=== PATIENT | female | born 1950 | race Caucasian/White ===

== ENCOUNTER 2016-07-26 08:29 | Day surgery (SDC) | payer OTHER ==
[2016-07-21 10:13] VITALS: BMI 47.0
--- NOTE | 2016-07-21 10:54 | PAT Medication Instructions ---
Service Date Jul 21, 2016. Current Home Medication List Acetaminophen (Tylenol), 1,000 MG PO PRN Ybqnd-G-Hsrnskvqsjcjw (Beano), 2 TAB PO QAM Aspirin (Aspirin Ec), 81 MG PO QAM Atorvastatin (Lipitor), 10 MG PO QAM Cholecalciferol (Vitamin D3), 15,000 TAB PO QAM Citalopram (Citalopram Hydrobromide), 1 TAB PO QAM Diphenhydramine Hcl (Benadryl Allergy), 1 CAP PO QAM Furosemide (Lasix), 40 MG PO QAM Insulin Glargine (Lantus), 30 UNITS SC QAM Insulin Lispro (Human) (Humalog), SC SLIDING SCALE Levothyroxine Sodium (Levothyroxine Sodium), 1 TAB PO QAM Lisinopril (Zestril), 10 MG PO QAM Lorazepam (Ativan), 0.5 MG PO TID Multivitamin (Multivitamin), 1 TAB PO QAM Ranitidine (Zantac), 150 MG PO QAM Sennosides-Docusate Sodium (Stool Softener), 3 TAB PO QAM Medication Instructions For Your Scheduled Surgery Aspirin (Aspirin Ec), 81 MG PO QAM (stop 5-7 days prior to surgery per surgeon instructions) - Hold the following medications the morning of surgery: Sennosides-Docusate Sodium (Stool Softener), 3 TAB PO QAM Multivitamin (Multivitamin), 1 TAB PO QAM Lisinopril (Zestril), 10 MG PO QAM Insulin Lispro (Human) (Humalog), SC SLIDING SCALE Diphenhydramine Hcl (Benadryl Allergy), 1 CAP PO QAM Furosemide (Lasix), 40 MG PO QAM Cholecalciferol (Vitamin D3), 15,000 TAB PO QAM Gnafd-B-Vpaswxaxpuynr (Beano), 2 TAB PO QAM - Take the following medications the morning of surgery with a sip of water: Ranitidine (Zantac), 150 MG PO QAM Lorazepam (Ativan), 0.5 MG PO TID Levothyroxine Sodium (Levothyroxine Sodium), 1 TAB PO QAM Citalopram (Citalopram Hydrobromide), 1 TAB PO QAM Atorvastatin (Lipitor), 10 MG PO QAM Acetaminophen (Tylenol), 1,000 MG PO PRN (if needed) - Take the following medications as scheduled the night before surgery: Lorazepam (Ativan), 0.5 MG PO TID Insulin Lispro (Human) (Humalog), SC SLIDING SCALE Acetaminophen (Tylenol), 1,000 MG PO PRN - For Insulin Dependent Diabetic patients: Test blood sugar A.M. of surgery. - If blood sugar is greater than 150, take half of your Lantus dose (15 units) - If blood sugar is less than 150, do not take any: Lantus morning of surgery If you have any questions please call us at [phone] or [phone] ( Celia) or [phone]
--- NOTE | 2016-07-21 11:32 | DIAGNOSTIC IMAGING REPORT ---
CHEST PREADMISSION(PA/LAT) CLINICAL HISTORY: PAT preoperative evaluation COMPARISON STUDY: 02/10/2016 FINDINGS: Mild stable cardiomegaly. Lungs are clear. Diaphragms smooth. Costophrenic angles are sharp. IMPRESSION: Mild stable cardiomegaly. Otherwise negative study Electronically signed by: Markel Mojica M.D. 07/21/2016 11:30 AM Dictated Date/Time: 07/21/2016 11:29 AM
[2016-07-21 11:41] LABS: PROTHROMBIN TIME (PATIENT) 10.2 SECONDS (9.0-12.0)
--- NOTE | 2016-07-25 16:14 | HISTORY & PHYSICAL EXAMINATION ---
DATE OF ADMISSION: 07/26/2016 HISTORY OF PRESENT ILLNESS: The patient presents as a very pleasant 65-year-old white female, 5 feet 1 inch, 248 pounds with complaints of ongoing right shoulder pain. She has had a recurrent tear of a previously repaired rotator cuff. She had postoperatively had an injury, whereby she had increased complaints of pain. She has failed attempts at conservative management including anti-inflammatories, relative rest, activity modification as well as injection and presents for revision repair of rotator cuff. PAST MEDICAL HISTORY: Significant for congestive heart failure, hypertension, hypercholesterolemia, asthma, emphysema, sleep apnea, home CPAP, anxiety, acid reflux, hiatal hernia, osteoarthritis, neck DJD, low back DJD, and obesity. Otherwise unremarkable. See history of present illness for pertinent positives. FAMILY HISTORY: Otherwise unremarkable and noncontributory. SOCIAL HISTORY: The patient denies history of alcohol, smoking or recreational drug use. PAST SURGICAL HISTORY: Significant for hysterectomy, total knee arthroplasty x2, bilateral carpal tunnel release, left shoulder surgery x2, right shoulder surgery x2, and cholecystectomy. ALLERGIES: None. MEDICATIONS: Include Lasix 40 mg p.o. q. daily, atorvastatin 10 mg p.o. at bedtime, ranitidine 150 mg p.o. q. daily, lorazepam 0.5 mg p.o. t.i.d., lisinopril 10 mg p.o. q. daily, Levoxyl 100 mcg daily, and aspirin 325 mg p.o. q. daily. PHYSICAL EXAMINATION: GENERAL: Reveals a very pleasant 65-year-old white female, alert and oriented x3. HEENT: Atraumatic, normocephalic. HEART: Irregular at 70 beats per minute. No murmurs are noted. LUNGS: Clear. No rales, rhonchi, or wheezes noted. ABDOMEN: Soft, nontender, nondistended. Bowel sounds are present in all 4 quadrants. RECTAL: No rectal examination was performed. MUSCULOSKELETAL: Consistent with that of a retear of a previously repaired rotator cuff after sustaining a fall and reinjuring her shoulder. She has failed attempts at conservative management including postoperative therapy, sling, pain management, injection and presents today for revision rotator cuff repair of the right shoulder which was previously repaired on 04/06/2016. PLAN: For postoperative pain management, DVT prophylaxis, antibiotics as noted above.
[~2016-07-26] VITALS: Ht 154.9 cm; Wt 113.7 kg
--- NOTE | 2016-07-26 08:27 | History & Physical Bridge Note ---
H&P Re-Evaluation Bridge Note: I have examined the patient, reviewed the History & Physical and in the interval since the performance of the History & Physical I have noted the following changes of clinical significance: No changes noted
[~2016-07-26 08:29] MED LIST: ACET-1256 PO; ALPHTAB4 PO; ASPI81TA28 PO; ATOR10TA82 PO; CEFAZOLIN 2000 MG/60 ML D5W IV SCH; CHOL1000 PO; CITA40TA4 PO; DIPH25CA65 PO; FRS/40 PO; INSDGI SC; INSU100I SC; LACTATED RINGER'S 1000ML 1,000 ML IV SCH; LEVO100T7 PO; LISI-461 PO; LORA-741 PO; MULT-506 PO; ROPIVACAINE 0.5% 5 MG/ML 30 ML VIAL ONE; SENNTAB23 PO; ZNTT/150 PO
[2016-07-26] MEDS ORDERED: MIDAZOLAM HCL 1 MG/ML 2ML VIAL ONE (08:49)
[2016-07-26] MEDS ORDERED: FENTANYL CITRATE INJ 50 MCG/1 ML 2 ML VIAL ONE (08:50)
[2016-07-26 09:15] VITALS: BP 145/67; PULSE 60; TEMP 36.9; O2SAT 97; Ht 154.9 cm; Wt 113.7 kg
[2016-07-26] MEDS ORDERED: GLYCOPYRROLATE INJ 0.2 MG/ML VIAL ONE (09:35)
[2016-07-26] MEDS ORDERED: ROCURONIUM BROMIDE 10 MG/ML 5 ML VIAL ONE (09:35)
[2016-07-26] MEDS ORDERED: PHENYLEPHRINE 100MCG/ML 5ML SYR ONE (09:35)
[2016-07-26] MEDS ORDERED: EpHEDrine SULFATE 50MG/5ML SYR ONE (09:35)
[2016-07-26] MEDS ORDERED: DEXAMETHASONE SOD INJ 4 MG/ML VIAL ONE (09:35)
[2016-07-26] MEDS ORDERED: LIDOCAINE HCL 2% 2 ML VIAL (20MG/ML) ONE (09:35)
[2016-07-26] MEDS ORDERED: ONDANSETRON INJ 2 MG/ML 2 ML VIAL ONE (09:35)
[2016-07-26] MEDS ORDERED: PROPOFOL IV EMULSION 10 MG/ML 20 ML VIAL IV ONE (09:35)
[2016-07-26] MEDS ORDERED: NEOSTIGMINE METHYLSULFATE 5 MG/5 ML SYR ONE (09:35)
[2016-07-26] MEDS ORDERED: LARYING-O-JET KIT (LTA) EXT ONE ×2 (11:33)
--- NOTE | 2016-07-26 11:51 | [facility] Post Operative Brief Note ---
Immediate Operative Summary Operative Date Jul 26, 2016. Pre-Operative Diagnosis Rotator cuff tear, right shoulder Post-Operative Diagnosis same as preoperative Procedure(s) Performed revision repair rotator cuff Surgeon Dr. Iraheta Roading Engineer Surgeon(s) Stefan Lowe PA-C Estimated Blood Loss 3 ML Findings 2 cm tear rotator cuff Specimens none Complication(s) None Disposition Recovery Room / PACU
--- NOTE | 2016-07-26 12:11 | OPERATIVE REPORT ---
DATE OF OPERATION: 07/26/2016 PREOPERATIVE DIAGNOSIS: Re-tear rotator cuff, right shoulder. POSTOPERATIVE DIAGNOSIS: Same. PROCEDURE: Revision repair of rotator cuff, right shoulder. SURGEON: Dr. Iraheta. COMPRESSOR TECHNICIAN: ANNIE Harris, who was necessary for prepping, draping, retraction, suture management, wound closure, and was necessary for the case. HISTORY: The patient presents as a very pleasant 65-year-old white female, being seen and evaluated as she had previously undergone a rotator cuff repair, presents after having sustained an injury and re-tear. She has approximately a 2 cm tear adjacent, just posterior to the region of the previous repair. On previous repair, anchors were intact and were well fixed to bone. There was a 2 cm tear involving the most posterior aspect of the supraspinatus and the anterior superior aspect of the infraspinatus. PROCEDURE IN DETAIL: After proper prepping and draping of the right shoulder region, standard arthroscopic portals revealed the above tear to be noted. The labrum was visualized and evaluated and noted to be intact. Articular cartilage of the glenoid and humerus was noted to be intact. Rotator cuff tear was approximately 2 cm across with no retraction noted. Subsequently, a 4.5 mm double-loaded anchor was placed into the greater tuberosity. The rotator cuff was repaired back to a bed of bleeding bone. There was no further acromioplasty necessary. Subsequently, all particulate matter and debris were removed. Skin portals were closed with 4-0 nylon. Sterile compressive dressing was placed. The patient was taken to recovery room in stable condition. ESTIMATED BLOOD LOSS: 3 mL COMPLICATIONS: None. I attest to the content of the Intraoperative Record and any orders documented therein. Any exceptio ns are noted below.
[2016-07-26] MEDS ORDERED: OXYC-57 PO (12:14)
[2016-07-26] MEDS ORDERED: MoRPHine SULFATE 2 MG/ML CARP IV PRN ×2 (12:15)
[2016-07-26] MEDS ORDERED: OXYCODONE/ACETAMINOPHEN 5-325 TAB PO PRN ×2 (12:15)
[2016-07-26] MEDS ORDERED: ONDANSETRON INJ 2 MG/ML 2 ML VIAL IV PRN (12:15)
--- NOTE | 2016-07-26 12:28 | Discharge Instructions ---
Discharge Instructions Date of Service Jul 26, 2016. Visit Reason for Visit: Right Shoulder Recurrent Rotator Cuff Tear Discharge Discharge Diagnosis / Problem: Recurrent Right RTC Tear Discharge Goals Goal(s): Decrease discomfort, Improve function Activity Recommendations Activity Limitations: per Instructions/Follow-up section Anesthesia . Post Anesthesia Instructions: If you have had General Anesthesia or IV Sedation: * Do not drive today. * Resume driving when surgeon permits. * Do not make important decisions or sign legal documents today. * Call surgeon for: 1. Temperature elevations greater than 101 degrees F. 2. Uncontrollable pain. 3. Excessive bleeding. 4. Persistent nausea and vomiting. 5. Medication intolerance (nausea, vomiting or rash). * For nausea and vomiting use only clear liquids such as: tea, soda, bouillon until nausea subsides, then gradually increase diet as tolerated. * If you have any concerns or questions, call your surgeon's office. If physician is unavailable and it is an emergency, call 911 or go to the nearest emergency room. . Instructions / Follow-Up Instructions / Follow-Up DO NOT TAKE YOUR COUGH MEDICINE (CODEINE/GUAIFENESIN) WHILE YOU ARE TAKING THE PERCOCET. [facility] DISCHARGE INSTRUCTIONS: ROTATOR CUFF REPAIR SELF CARE INSTRUCTIONS A. You are permitted to loosen your sling/immobilizer to move your elbow, wrist , and hand to prevent stiffness. You should use your well arm (good arm) to assist the operated extremity when trying to raise the arm away from the body, hygiene purposes. Do NOT actively try to use/engage your shoulder muscles in operative arm at this time. You should NOT do overhead activity, lifting, or attempt to reach behind your back. B. You can start Physical Therapy upon discharge. Call to arrange your PT in the next 2-3 days. You will be provided a prescription for therapy with specific restrictions, if needed, at time of discharge. C. At 48 hours post-operatively, you may change your dressing. (Leave white steri-strips intact if present). Use band-aids and change daily. You are allowed to shower at this time and get the incision area wet, but DO NOT soak or submerge incision area in water. (No baths, swimming pools, hot tubs) D. Do NOT apply soap or any ointment/lotions directly over incision. E. You may use ice as needed to operative shoulder SPECIAL CARE INSTRUCTIONS: VERY IMPORTANT TO READ AND REVIEW A. There are a few signs you need to watch for after you are home. Call [facility] at [phone] if you experience any of the following: a. Increased severe shoulder pain. Some pain is expected especially when you exercise b. Increased swelling in your shoulder or arm; pain or swelling in either upper extremity. (Note: swelling and stiffness is normal and expected for several weeks post op, depending on type of shoulder surgery you had). c. Any fluid or drainage from the incision; redness of the incision. d. Shortness of breath or chest pain. B. Please call [facility] at [phone] if you have any questions or concerns about your operation or recovery. C. Call your physician if: a. Temperature is greater than 101 degrees (F). b. Pain is not relieved by prescribed pain medications. c. Increase drainage or redness from incision. d. Unanswered questions or concerns. D. Pain Medication: a. You will be prescribed pain medication upon discharge that should last till your first post-operative appointment. b. If you experience nausea and/or skin rash, discontinue this medication and contact our office for an alternative medication. c. Caution- narcotic pain medication can cause constipation. FOLLOW UP VISIT: Please call [facility] at [phone] to schedule a follow up appointment 10-14 days from your surgery date. Diet Recommendations Recommended Home Diet: resume previous diet Procedures Procedures Performed: Right Shoulder Arthroscopic Rotator Cuff Revision and Repair Pending Studies Studies pending at discharge: no Medical Emergencies . Who to Call and When: Medical Emergencies: If at any time you feel your situation is an emergency, please call 911 immediately. . Non-Emergent Contact Non-Emergency issues call your: Surgeon Call Non-Emergent contact if: temperature is above 101.5, your pain is not controlled, your pain is worsening, wound has increased drainage, wound has increased redness . . "Provider Documentation" section prepared by Stefan Lowe. PA Drug Monitoring Program Search Results: patient reviewed within database, see additional documentation Drug Monitoring Findings: Pt receiving Codeine/Guaifenesin from another provider. (Not listed on patient discharge medicine list) Pt needs to stop using this during the time she is using her Percocet.
--- NOTE | 2016-07-26 12:37 | Anesthesiology Progress Note ---
Anesthesia Post Op Note Date & Time Jul 26, 2016 at 12:36 Vital Signs Pain Intensity: 0 Vital Signs Past 12 Hours Date Time Temp Pulse Resp B/P Pulse Ox O2 Delivery O2 Flow Rate FiO2 07/26/16 12:32 70 18 07/26/16 12:32 70 18 94 07/26/16 12:30 160/82 07/26/16 12:27 63 17 07/26/16 12:27 64 17 100 07/26/16 12:25 146/74 07/26/16 12:22 65 18 07/26/16 12:22 65 18 99 07/26/16 12:21 64 17 07/26/16 12:21 64 17 99 07/26/16 12:20 146/72 07/26/16 12:16 74 18 155/77 100 07/26/16 12:16 74 18 07/26/16 12:11 70 18 97 07/26/16 12:11 70 18 07/26/16 12:10 155/88 07/26/16 12:06 36.0 73 16 180/93 99 Nasal Cannula 10 07/26/16 12:06 72 18 180/93 99 07/26/16 12:06 72 18 07/26/16 09:15 36.9 60 20 145/67 97 Room Air Notes Mental Status: alert / awake / arousable, participated in evaluation Pt Amnestic to Procedure: Yes Nausea / Vomiting: adequately controlled Pain: adequately controlled Airway Patency, RR, SpO2: stable & adequate BP & HR: stable & adequate Hydration State: stable & adequate Anesthetic Complications: no major complications apparent
[2016-07-26 12:55] VITALS: BP 132/56; PULSE 73; TEMP 36.9; O2SAT 92
[2016-07-26 13:25] VITALS: BP 130/55; PULSE 71; TEMP 36.5; O2SAT 95
[2016-07-26 14:05] VITALS: BP 126/81; PULSE 72; TEMP 36.5; O2SAT 96
== END 2016-07-26 14:30 | disposition home or self-care (01) ==
LOC: C.ACU 08:29
PROVIDERS: ATTEND Orthopaedic Surgery
DX: S46.011A Strain of muscle(s) and tendon(s) of the rotator cuff of right shoulder, initial encounter (principal); X58.XXXA Exposure to other specified factors, initial encounter; I12.9 Hypertensive chronic kidney disease with stage 1 through stage 4 chronic kidney disease, or unspecified chronic kidney disease; E78.00 Pure hypercholesterolemia, unspecified; J45.909 Unspecified asthma, uncomplicated; M19.90 Unspecified osteoarthritis, unspecified site; G47.33 Obstructive sleep apnea (adult) (pediatric); E11.22 Type 2 diabetes mellitus with diabetic chronic kidney disease; E66.01 Morbid (severe) obesity due to excess calories; N18.3 Chronic kidney disease, stage 3 (moderate); Z90.710 Acquired absence of both cervix and uterus; Z98.84 Bariatric surgery status; Z90.49 Acquired absence of other specified parts of digestive tract; Z98.42 Cataract extraction status, left eye; Z98.41 Cataract extraction status, right eye; Z98.890 Other specified postprocedural states; Z68.42 Body mass index [BMI] 45.0-49.9, adult; Z79.899 Other long term (current) drug therapy; Z79.82 Long term (current) use of aspirin; Z79.4 Long term (current) use of insulin

== ENCOUNTER → 2017-05-15 | Outpatient (CLI) | payer OTHER ==
[~2017-05-15] MED LIST changes: -ACET-1256 PO; -CEFAZOLIN 2000 MG/60 ML D5W IV SCH; -LACTATED RINGER'S 1000ML 1,000 ML IV SCH; -ROPIVACAINE 0.5% 5 MG/ML 30 ML VIAL ONE
--- NOTE | 2017-05-15 11:50 | DIAGNOSTIC IMAGING REPORT ---
GI SERIES W/O KUB CLINICAL HISTORY: 66 years-old Female presenting with INTESTINAL POST OPERATIVE NONABSORBTION, history of gastric bypass. TECHNIQUE: A standard air contrast upper GI series was performed. Spot images of the esophagus and stomach were obtained in multiple obliquities both upright and prone. COMPARISON: 11/05/2015. FINDINGS: The patient swallowed barium without difficulty. The esophagus is structurally normal without evidence of intrinsic or extrinsic mass. The esophageal mucosal pattern is normal. The gastroesophageal junction distends normally. Postsurgical changes of Mesha-en-Y gastric bypass evident with normal appearance and size of the gastric pouch. The gastrojejunostomy is patent. No evidence of a gastrogastric fistula. No holdup of contrast or leak. Normal passage of oral contrast into the small bowel. Fluoroscopy dosage (mGy): Not available. Fluoroscopy time: 1.5 minutes. Number of fluoroscopic spot images: 22. IMPRESSION: 1. Expected postsurgical appearance of the Mesha-en-Y gastric bypass. No evidence of a gastrogastric fistula. Electronically signed by: Joshua Castelan M.D. 05/15/2017 11:48 AM Dictated Date/Time: 05/15/2017 11:44 AM
== END | disposition home or self-care (01) ==
LOC: C.RAD 10:52
PROVIDERS: ATTEND Physician Assistant
DX: K91.2 Postsurgical malabsorption, not elsewhere classified (principal)

== ENCOUNTER → 2017-11-04 | Outpatient (CLI) | payer OTHER ==
[~2017-11-04] MED LIST changes: +RANI150T85 PO; -ZNTT/150 PO
--- NOTE | 2017-11-06 07:41 | PAP/PSG TECHNICIAN REPORT ---
[facility] Executive Vice President And Chief Financial Officer Polysomnogram Report Study name: None Report date: 11/05/2017 Study date: 11/04/2017 Referring Physician: Dr.Nigelle Lani Manzo Name: BLU WELLS Interpreting Physician: Schuyler Gutierrez D.O. Date of : 1950 Executive Vice President And Chief Financial Officer: Tamara Al, PSGT. Sex: Female Age: 67 StudyType: PSG Weight: 255 lbs Height: 67 years, Height 5' 2" BMI: 46.64 Medications: See list of 18 medications listed in chart. Patient History 67-year-old female presents to the sleep lab for a titration sleep study. Patient wakes tired. She is currently on 12 cm of c-pap with a leak of 71 %. Her mask slides upward when she sleeps. Parameters Monitored NPSG: E1-M2, E2-M1, Fp1-M2, Fp2-M1, F3-M2, F4-M2, F4-M1, C3-M2, C4-M2, C4-M1, O1-M2, O2-M2, O2-M1, T3-M2, T4-M1, P3-M2, P4-M1, CHIN1, CHIN2, HR, EKG, Legs, PFLOW, SNOR, FLOW, CFLOW, Tidal Volume, THOR, ABDO, SpO2, PLTH, CPRESS, ETCO2 Wave, ETCO2, pH Sleep Architecture Sleep Stages Time at Lights Off 8:37:00 PM STAGES Time (min.) TST (%) Time at Lights On 6:07:30 AM Wake 76.5 -- Total Recording Time (TRT) 564.50 min. N1 12.5 3 Total Sleep Period (TSP) 535.0 min. N2 353.5 72 Total Sleep Time (TST) 488.0min. N3 2.5 1 Awake Time 76.5 min. REM 119.5 24 Wake after Sleep Onset 47.0 min. Sleep Efficiency (SE) 86 % Sleep Onset Latency (NANCY) 35.5 min. Number of Stage 1 Shifts None Awakenings 5 Stage Changes 32 Number of REM periods 4 REM 119.5 24 REM Latency 94.5 min. NREM 368.5 76 Body Position Analysis Supine Right Left Side Prone Vertical Total Sleep Time (min.) 52.6 176.9 301.5 478.41 0.0 0.3 Total Sleep Time (%) 2% 36% 62% 98 0% N/A% Total Sleep Time REM (min.) 0.0 17.0 102.5 None 0.0 0.0 Total Sleep Time NREM (min.) 9.6 159.9 199.0 None 0.0 0.0 Intermittent Wake (min.) 43.0 17.5 15.7 None 0.0 0.3 Total Sleep Period (%) 3% None None None None None Arousals Myoclonus (PLM) * Events Count Index Events Count Index Spontaneous 56 7 Events Awake (PLMW) 0 0.0 Respiratory 1 0.1 Events Asleep w/ Arousal (PLMA) 34 4.2 PLM 34 4 Events Asleep w/o Arousal (PLMS) 475 58.4 Snoring 1 0 Total Asleep 509 62.6 Total 92 11 Total 509 54 Respiratory Analysis * CA OA MA CH H RERA Total Count 0 0 0 0 5 0 5 Index 0.0 0.0 0.0 0 0.6 0 0.6 Mean Duration 0.0 0.0 0.0 0.00 15.3 0.0 15.3 Longest Duration 0.0 0.0 0.0 0.00 0.0 0.0 25.1 Respiratory Event Summary Total Supine ~Supine Right Left Prone REM NREM Apneas Count 0 0 0 0 0 N/A 0 0 Index 0.0 0 0 0.0 0.0 N/A 0 0 Hypopneas (4% Desat) Count 5 0 5 1 4 N/A 4 1 Index 0.6 0.0 1 0.3 0.8 N/A 2.0 0.2 Apneas & All Hypopneas Count 5 0 5 1 4 N/A 4 1 Index 0.6 0 1 0 1 N/A 2.0 0.2 Respiratory Events (Fork Truck Operator+All Hyp+RERA) Count 5 0 5 1 4 N/A 4 1 Index 0.6 0 1 0.3 0.8 N/A 2.0 0.2 Respiratory Related Arousal Count 1 0 1 0 1 N/A 1 0 Index 0.1 0 0 0 0 N/A 1 0 Snoring Analysis Supine Right Left Prone REM NREM Total Snore duration 4.3 min Snores count 0 32 123 N/A 34 121 155 Snore mean duration 1.7 Sec Snores index 0 11 24 N/A 17.1 19.7 19.1 TST with snoring (%) 0.9% Desaturation Event Summary: Minimum %SpO2 Event Count Mean/Min/Max Duration(sec.) Desaturation Index % Time In Bed > 90 11 43.3 / 13.8 / 59.3 2.6 45.7 86 - 90 6 36.5 / 13.8 / 58.5 1.2 54.1 81 - 85 0 N/A 0.0 0.2 76 - 80 0 N/A 0.0 0.0 71 - 75 0 N/A 0.0 0.0 66 - 70 0 N/A 0.0 0.0 61 - 65 0 N/A 0.0 0.0 56 - 60 0 N/A 0.0 0.0 51 - 55 0 N/A 0.0 0.0 < 50 0 N/A 0.0 0.0 Total REM NREM Awake <50% 0.0 min. 0.0 min. 0.0 min. 0.0 min. 51 - 60% 0.0 min. 0.0 min. 0.0 min. 0.0 min. 61 - 70% 0.0 min. 0.0 min. 0.0 min. 0.0 min. 71 - 80% 0.0 min. 0.0 min. 0.0 min. 0.0 min. 81 - 90% 301.9 min. 50.8 min. 219.6 min. 31.5 min. 91 - 100% 254.1 min. 68.6 min. 146.8 min. 38.7 min. Average 90 91 90 90 Minimum SpO2 81 81 86 84 Desaturation Event Index 1.5 5.0 0.7 0.0 # Desat. Events below 89% 7 6 1 N/A Time(%) with Saturation below 89% 12.7 1.8 8.7 2.2 Time(min.) with Saturation below 89% 70.6 10.1 48.5 12.0 Heart Rate Analysis End Tidal CO2 Analysis Min (bpm) Max (bpm) Average (bpm) TSP (mins) % of TSP Awake 52 72 59 Above 55 mmHg 0.0 0.0 NREM 47 77 56 50-55 mmHg 0.0 0.0 REM 48 67 54 45-50 mmHg 485.8 99.6 Overall 47 77 56 40-45 mmHg 0.0 0.0 35-40 mmHg 0.0 0.0 30-35 mmHg 0.0 0.0 Average ETCO2 0.0 Supplemental O2 Values Minimum O2 level: None Value Start Time End Time Executive Vice President And Chief Financial Officer Comments PAP Study: Mrs. Wells slept in the right, left, and supine positions. No cardiac arrhythmia. PLM's noted. No bruxism noted. CPAP was initiated at +8 CMH2O and up-titrated to an optimal level of +9 CMH2O, which nearly eliminated all respiratory events and snoring. A Small Res Med Air Fit F10, was used during titration Mrs. Wells awoke to use the restroom one time during the night. Mrs. Wells stated, I did sleep better than I do when I am in my own bed. The final report will be interpreted and signed by a sleep physician. The completed physician report will then be placed in the patient medical record Patient's mask was to small, when her mouth would open her mask would move upward and her mouth was exposed. A small Res Med Air Fit F 10 was fitted for her with good results, she slept well and her leak was minimal the entire night. At 5:42 am 1 liter of oxygen was added, due to her oxygen being under 89 %.for eight minutes. Therapy Event: Therapy (cm H20) 8 9 Total Time at Pressure (min.) 367.4 197.1 TST at Pressure (min.) 292.9 195.1 # Periods 1 1 Sleep Onset (min.) 35.5 0.0 REM Onset (min.) 130.0 0.0 Sleep Efficiency % 79 99 Wakefulness (%) 20.3 1.0 Wakefulness (min.) 74.5 2.0 NREM 1 (%) 2.7 1.3 NREM 1 (min.) 10.0 2.5 NREM 2 (%) 59.9 67.7 NREM 2 (min.) 220.0 133.5 NREM 3 (%) 0.7 0.0 NREM 3 (min.) 2.5 0.0 REM (%) 16.4 30.0 REM (min.) 60.4 59.1 # Arousals 64 28 Arousal Index 13.1 8.6 # Snore 44 111 Snore Index 9.0 34.1 AHI 0.8 0.3 AHI Supine 0.0 N/A AHI Non-Supine 0.8 0.3 NREM AHI 0.3 0.0 REM AHI 3.0 1.0 RDI 0.8 0.3 # Obstructive 0 0 # Central Ap 0 0 # Mixed 0 0 # Hypopneas 4 1 RERAS 0 0 Total Respiratory Events 4 1 Time Below SpO2 89.00% (min.) 49.8 8.8 Mean NREM SpO2 (%) 90 91 Mean REM SpO2 (%) 90 91 Mean Sleep SpO2 (%) 90 91 Min NREM SpO2 (%) 86 87 Min REM SpO2 (%) 81 87 Position Supine (min.) 9.6 0.0 Position Non-supine (min.) 283.3 195.1 LM Index Sleep 70.3 51.1 LM Index NREM 74.6 46.3 LM Index REM 53.6 61.9 Mean Heart Rate (bpm) 58 52 Min Heart Rate (bpm) 51 47
--- NOTE | 2017-11-08 21:25 | POLYSOMNOGRAPH REPORT ---
CLINICAL DATA: The patient is a 67-year-old female who has a history of sleep apnea dating back to 2012 when she had an apnea-hypopnea index of 26.3. She has been on CPAP of 12. She does not feel rested. She has had problems with a large air leaks. This was an in-lab CPAP titration study. SLEEP ARCHITECTURE: The total sleep period was 535 minutes. Total sleep time was 488 minutes. Sleep efficiency was mildly reduced to 86%. The sleep latency was prolonged to 35.5 minutes. Wake after sleep onset was increased to 47 minutes. REM latency was 94.5 minutes. There were 3 REM periods during the night. Sleep consisted of stage N1 3%, stage N2 72%, stage N3 1%, stage REM 24%. AROUSAL DATA: The patient had 92 arousals including 1 snoring arousal, 34 PLM arousals, 1 respiratory arousal, and 56 spontaneous arousals. The arousal index was 11. PLM DATA: The patient had a total of 509 periodic limb movements of sleep for a PLM index severely elevated at 62.6. There were 34 arousals, associated with limb movements for a PLM arousal index of 4.2. EKG: The cardiac rates ranged from 47-77 beats per minute. The average heart rate was 56 beats per minute. RESPIRATORY DATA: The patient's respiratory events were treated with nasal CPAP. She had a total of 5 respiratory events, all hypopneas. Hypopneas were scored according to the 4% desaturation rule. The mean duration of the hypopneas was 15.3 seconds. The apnea-hypopnea index was normal at 0.6. This reflects resolution of sleep disordered breathing. OXIMETRY DATA: The average saturation was 90%. The minimum saturation was 81%. There was a total of 70.6 minutes with saturations less than 89%. HOME ORGANIZER COMMENTS: Ms. Romero slept in the right, left, and supine positions. No cardiac arrhythmia. PLMs noted. Bruxism noted. CPAP was initiated at 8 cm and up titrated to an optimal level of 9 cm, which nearly eliminated all respiratory events and snoring. A ResMed AirFit F10 size small was used. Ms. Romero awoke to use the restroom one time during the night. She stated that she did sleep better than she does in her own bed. The patient's own mask was too small. When her mouth would open, her mask would move upward and her mouth was exposed. At 5:42 a.m., 1 liter of oxygen was added due to her oxygen being under 89% for 8 minutes. IMPRESSION: 1. Obstructive sleep apnea -- resolved with nasal CPAP at 9 cm. 2. Periodic limb movement disorder. COMMENTS: The patient did very well with the CPAP titration. We were able to find a mask that seemed to fit her well. She does not need as much pressure as before. This may help with the air leaks also. At a final pressure of 9 cm, her apnea-hypopnea index was only 0.3. She had frequent periodic limb movements. Clinical correlation is required to determine if she may have restless legs of significance. I do not feel the patient needs oxygen at present in to her CPAP. RECOMMENDATIONS: 1. It is advised that her CPAP be adjusted to 9 cm. 2. She is to utilize the mass given to her from the sleep lab, which was a ResMed AirFit F10 size small. 3. Weight loss is advised in light of the elevation of body mass index at 46.64. 4. The patient's history was that she had a very irregular sleep-wake schedule. It is advised that she have a regular sleep-wake schedule, going to bed and getting up at about the same time each day. She should allow herself 7.5-8 hours of sleep time.
== END | disposition home or self-care (01) ==
LOC: C.NEUR 20:00
PROVIDERS: ATTEND Internal Medicine Pulmonary Disease
DX: G47.33 Obstructive sleep apnea (adult) (pediatric) (principal); G47.61 Periodic limb movement disorder